=== PATIENT | male | born 1965 | race Caucasian/White ===

== ENCOUNTER 2017-10-26 22:12 | Inpatient (IN) | payer OTHER ==
[~2017-10-26] VITALS: Ht 172.7 cm; Wt 81.1 kg
[2017-10-26 23:41] LABS: HEMATOCRIT 48.4 % (38.0-50.0); HEMOGLOBIN 17.2 G/DL (12.5-16.6); MCH 31.4 PG (29.0-34.0); MCHC 35.5 G/DL (30.0-36.0); MCV 88.3 FL (86-99); PLATELET COUNT 237 K/uL (156-360); RBC DIS.WIDTH-CV 12.9 % (11.8-14.6); RBC DIS.WIDTH-SD 41.7 % (39-53); RED BLOOD COUNT 5.48 M/uL (4.00-5.50); WHITE BLOOD COUNT 12.2 K/uL (4.1-10.2)
[2017-10-26 23:43] LABS: ALBUMIN 4.5 g/dL (3.2-4.8); CHLORIDE 101 mEq/L (99-109); POTASSIUM 3.7 mEq/L (3.7-5.4); SODIUM 136 mEq/L (136-147)
[2017-10-26 23:46] LABS: GLUCOSE 133 mg/dL (70-99)
[2017-10-26 23:47] LABS: TOTAL BILIRUBIN 0.7 mg/dL (0.0-1.0)
[2017-10-26 23:49] LABS: ALKALINE PHOSPHATASE 63 IU/L (3-129); CREATININE 0.8 mg/dL (0.6-1.3)
[2017-10-26 23:50] LABS: UREA NITROGEN (BUN) 15 mg/dL (9-23)
[2017-10-26 23:51] LABS: AST (GOT) 22 IU/L (2-34)
[2017-10-26 23:52] LABS: ALT (GPT) 21 IU/L (3-49)
[2017-10-26 23:53] LABS: LIPASE 482 U/L (1.0-51.0)
[2017-10-27] VITALS (14 sets, daily range): BP systolic 125–199; BP diastolic 68–166
[2017-10-27] LABS: APPEARANCE CLEAR ((CLEAR)); BILIRUBIN NEGATIVE; BLOOD SMALL; COLOR YELLOW ((YELLOW)); GLUCOSE (STRIP) 50; KETONES 20; LEUKOCYTES NEGATIVE; NITRITE NEGATIVE; PROTEIN (STRIP) 100; SPECIFIC GRAVITY 1.024 (1.000-1.030); UROBILINOGEN 0.2 MG/DL (0.2-1.0)
[2017-10-27 00:03] LABS: BACTERIA NONE SEEN /HPF; EPITHELIAL CELLS NONE SEEN /HPF; HYALINE CASTS 0-5 /LPF; MUCUS 4+ /LPF; RED BLOOD CELLS 0-5 /HPF (0-5); UCUL ADDED? NO; WHITE BLOOD CELLS 0-5 /HPF (0-5)
[2017-10-27 00:04] LABS: GFR ESTIMATE (CALCULATED) > 59 mL/min/ (58.99-99999)
[2017-10-27 00:51] LABS: SERUM ETHYL ALCOHOL < 10 mg/dL
[2017-10-27 02:09] LABS: AMPHETAMINE NEGATIVE (500 ng/mL); BARBITURATES NEGATIVE (200 ng/mL); BENZODIAZEPINES NEGATIVE (150 ng/mL); BUPRENORPHINE NEGATIVE (10 ng/mL); COCAINE NEGATIVE (150 ng/mL); METHADONE NEGATIVE (200 ng/mL); METHAMPHETAMINE NEGATIVE (500 ng/mL); OPIATES (MORPHINE) NEGATIVE (100 ng/mL); OXYCODONE NEGATIVE (100 ng/mL); PHENCYCLIDINE NEGATIVE (25 ng/mL); PROPOXYPHENE NEGATIVE (300 ng/mL); THC CANNABINOIDS NEGATIVE (50 ng/mL); TRICYCLIC ANTIDEPRESSANTS NEGATIVE (300 ng/mL)
[2017-10-27 03:27] LABS: MAGNESIUM 2.2 mg/dL (1.3-2.7)
[2017-10-27 04:19] LABS: TRIGLYCERIDES 62 MG/DL (Normal: <150)
[2017-10-27 06:20] LABS: BASOPHIL (%) 0.1 % (0-1); EOSINOPHIL (%) 0.1 % (0-5); HEMATOCRIT 45.2 % (38.0-50.0); HEMOGLOBIN 16.3 G/DL (12.5-16.6); IMMATURE GRANULOCYTE (%) 0.4 % (0.0-0.7); LYMPHOCYTE (%) 5.4 % (15-42); LYMPHOCYTE COUNT 0.7 K/uL (1.0-2.8); MCH 31.7 PG (29.0-34.0); MCHC 36.1 G/DL (30.0-36.0); MCV 87.9 FL (86-99); MONOCYTE COUNT 0.8 K/uL (0-0.8); NEUTROPHIL COUNT 11.2 K/uL (1.8-6.4); PLATELET COUNT 211 K/uL (156-360); RBC DIS.WIDTH-CV 12.9 % (11.8-14.6); RBC DIS.WIDTH-SD 41.6 % (39-53); RED BLOOD COUNT 5.14 M/uL (4.00-5.50); WHITE BLOOD COUNT 12.7 K/uL (4.1-10.2)
[2017-10-27 06:26] LABS: ALBUMIN 3.9 g/dL (3.2-4.8)
[2017-10-27 06:27] LABS: CHLORIDE 104 mEq/L (99-109); POTASSIUM 3.6 mEq/L (3.7-5.4); SODIUM 135 mEq/L (136-147)
[2017-10-27 06:29] LABS: GLUCOSE 132 mg/dL (70-99); TOTAL PROTEIN 6.9 g/dL (6.4-8.3)
[2017-10-27 06:31] LABS: TOTAL BILIRUBIN 0.8 mg/dL (0.0-1.0)
[2017-10-27 06:32] LABS: ALKALINE PHOSPHATASE 53 IU/L (3-129)
[2017-10-27 06:33] LABS: CREATININE 0.7 mg/dL (0.6-1.3); GFR ESTIMATE (CALCULATED) > 59 mL/min/ (58.99-99999)
[2017-10-27 06:34] LABS: AST (GOT) 17 IU/L (2-34); UREA NITROGEN (BUN) 13 mg/dL (9-23)
[2017-10-27 06:36] LABS: ALT (GPT) 17 IU/L (3-49)
[2017-10-27] MEDS ORDERED: ADVIL200 MG PO (16:57)
[2017-10-28] VITALS (19 sets, daily range): BP systolic 126–151; BP diastolic 77–91
[2017-10-28 05:27] LABS: BASOPHIL (%) 0.2 % (0-1); EOSINOPHIL (%) 0 % (0-5); HEMATOCRIT 41.2 % (38.0-50.0); HEMOGLOBIN 14.4 G/DL (12.5-16.6); IMMATURE GRANULOCYTE (%) 0.6 % (0.0-0.7); LYMPHOCYTE (%) 5.9 % (15-42); LYMPHOCYTE COUNT 0.8 K/uL (1.0-2.8); MCH 30.6 PG (29.0-34.0); MCV 87.7 FL (86-99); MONOCYTE (%) 6.5 % (3-12); MONOCYTE COUNT 0.8 K/uL (0-0.8); NEUTROPHIL (%) 86.8 % (45-76); NEUTROPHIL COUNT 11.2 K/uL (1.8-6.4); PLATELET COUNT 176 K/uL (156-360); RBC DIS.WIDTH-CV 13.2 % (11.8-14.6); RBC DIS.WIDTH-SD 42.6 % (39-53); WHITE BLOOD COUNT 12.9 K/uL (4.1-10.2)
[2017-10-28 05:42] LABS: AMYLASE 101 IU/L (1-118); CHLORIDE 103 MEQ/L (99-109); CREATININE 0.5 MG/DL (0.6-1.3); GFR ESTIMATE (CALCULATED) > 59 mL/min/ (58.99-99999); GLUCOSE 147 mg/dL (70-99); LIPASE 125 U/L (1.0-51.0); POTASSIUM 3.2 MEQ/L (3.7-5.4); SODIUM 134 MEQ/L (136-147); UREA NITROGEN (BUN) 6 mg/dL (9-23)
[2017-10-28 09:08] LABS: MAGNESIUM 1.7 mg/dl (1.3-2.7)
[2017-10-29 04:27] VITALS: BP 130/73
[2017-10-29 05:28] LABS: BASOPHIL (%) 0.2 % (0-1); EOSINOPHIL (%) 0.9 % (0-5); EOSINOPHIL COUNT 0.1 K/uL (0-0.3); HEMATOCRIT 38.4 % (38.0-50.0); HEMOGLOBIN 13.5 G/DL (12.5-16.6); IMMATURE GRANULOCYTE (%) 0.3 % (0.0-0.7); LYMPHOCYTE (%) 9.2 % (15-42); LYMPHOCYTE COUNT 0.9 K/uL (1.0-2.8); MCH 31.1 PG (29.0-34.0); MCHC 35.2 G/DL (30.0-36.0); MCV 88.5 FL (86-99); MONOCYTE (%) 7.2 % (3-12); MONOCYTE COUNT 0.7 K/uL (0-0.8); NEUTROPHIL (%) 82.2 % (45-76); NEUTROPHIL COUNT 7.7 K/uL (1.8-6.4); PLATELET COUNT 173 K/uL (156-360); RBC DIS.WIDTH-CV 13.2 % (11.8-14.6); RED BLOOD COUNT 4.34 M/uL (4.00-5.50); WHITE BLOOD COUNT 9.3 K/uL (4.1-10.2)
[2017-10-29 05:54] LABS: CHLORIDE 104 MEQ/L (99-109); CREATININE 0.5 MG/DL (0.6-1.3); GFR ESTIMATE (CALCULATED) > 59 mL/min/ (58.99-99999); GLUCOSE 122 mg/dL (70-99); LIPASE 64 U/L (1.0-51.0); POTASSIUM 3.2 MEQ/L (3.7-5.4); SODIUM 136 MEQ/L (136-147); UREA NITROGEN (BUN) 5 mg/dL (9-23)
[2017-10-29 05:59] LABS: AMYLASE 60 IU/L (1-118)
[2017-10-29 07:31] VITALS: BP 121/72
[2017-10-29 11:22] VITALS: BP 128/78
[2017-10-29 15:37] VITALS: BP 131/81
[2017-10-29 19:13] VITALS: BP 134/81
[2017-10-29 23:37] VITALS: BP 124/82
[2017-10-30 03:34] VITALS: BP 120/79
[2017-10-30 06:50] LABS: HEMATOCRIT 39.4 % (38.0-50.0); HEMOGLOBIN 13.6 G/DL (12.5-16.6); MCH 30.8 PG (29.0-34.0); MCHC 34.5 G/DL (30.0-36.0); MCV 89.1 FL (86-99); PLATELET COUNT 189 K/uL (156-360); RBC DIS.WIDTH-CV 13.5 % (11.8-14.6); RBC DIS.WIDTH-SD 44.5 % (39-53); RED BLOOD COUNT 4.42 M/uL (4.00-5.50)
[2017-10-30 07:31] VITALS: BP 122/74
[2017-10-30 07:31] LABS: AMYLASE 52 IU/L (1-118); CHLORIDE 107 MEQ/L (99-109); CREATININE 0.5 MG/DL (0.6-1.3); GFR ESTIMATE (CALCULATED) > 59 mL/min/ (58.99-99999); GLUCOSE 102 mg/dL (70-99); LIPASE 57 U/L (1.0-51.0); POTASSIUM 3.8 MEQ/L (3.7-5.4); SODIUM 139 MEQ/L (136-147); UREA NITROGEN (BUN) 7 mg/dL (9-23)
[2017-10-30] MEDS ORDERED: NIFEDIPINE10 MG PO (11:50)
[2017-10-30] MEDS ORDERED: THIAMINE HCL100 MG PO (11:56)
[2017-10-30] MEDS ORDERED: PEPCID40 MG PO (11:58)
[2017-10-30] MEDS ORDERED: FOLIC ACID1 MG PO (11:58)
[2017-10-30] MEDS ORDERED: ULTRAM50 MG PO (11:59)
== END 2017-10-30 13:44 | disposition home or self-care (01) | DRG 439 ==
LOC: EME 22:12 → EDOF 10-27 02:53 → 4WEST 10-27 02:53 → ENRESERV 10-27 02:54 → 4WEST 10-27 07:14 → ENRESERV 10-28 15:18 → 3EAST 10-28 17:34
PROVIDERS: Internal Medicine; Internal Medicine Gastroenterology
DX: K85.21 Alcohol induced acute pancreatitis with uninfected necrosis (principal); F10.239 Alcohol dependence with withdrawal, unspecified; I16.0 Hypertensive urgency; I10 Essential (primary) hypertension; E86.0 Dehydration; E83.52 Hypercalcemia; E87.6 Hypokalemia; R09.02 Hypoxemia; J98.11 Atelectasis; F17.210 Nicotine dependence, cigarettes, uncomplicated
CPT/HCPCS: 71045; 74177; 80048; 80053; 81003; 82150; 83605; 83690; 83735; 84145 90; 84478; 85025; 85027; 87040; 87641; 94799; 99281; 99284; C9113; G0480; J0360; J1650; J2060; J2270; J2405; J2543; J3010; J3411; J7030; J7050